=== PATIENT | female | born 1970 | race Two or more races ===

== ENCOUNTER 2022-03-01 15:45 | Emergency (ER) | payer OTHER ==
[~2022-03-01] VITALS: Ht 160 cm; Wt 79.4 kg
[2022-03-01] MEDS ORDERED: JARDIANCE10 MG (15:58)
== END 2022-03-01 17:03 | disposition home or self-care (01) ==
LOC: ER 15:45
DX: L02.211 Cutaneous abscess of abdominal wall (principal)